=== PATIENT | female | born 1980 | race Caucasian/White ===

== ENCOUNTER 2021-07-04 10:17 | Inpatient (IN) | payer SELFPAY ==
[2021-07-04] MEDS ORDERED: Ondansetron PF 4 MG/2 ML Vial ONE ×3 (10:44→19:46)
[2021-07-04] MEDS ORDERED: Morphine 4 MG/ML VIAL ONE ×2 (10:44→16:11)
[2021-07-04 11:14] LABS: Hemoglobin 15.1 g/dL (12.0-16.0); Mean Corpuscular HGB CONC 32.5 g/dL (32.0-36.0); Mean Corpuscular Hemoglobin 28.9 pg (27.0-31.0); Mean Corpuscular Volume 88.9 fL (78.0-98.0); Mean Platelet Volume 5.7 fL (7.4-10.4); Platelet Count 728 thou/uL (130-400); RBC Distribution Width 12.3 % (11.5-14.5); White Blood Cell (WBC) Count 27.2 thou/uL (4.8-10.8)
[2021-07-04 11:17] LABS: BHCG - Serum Negative (NEGATIVE); Pregs Control Background? CLEAR/WHITE (CLR/WHITE); Pregs Control Bar Appear? YES (CONTROL BAR)
[2021-07-04 11:19] LABS: ALT (SGPT) 24 U/L (8-55); AST (SGOT) 17 U/L (5-34); Alkaline Phosphatase 135 U/L (40-110); Anion Gap 24 mmol/L (10-20); BUN (Urea Nitrogen) 9 mg/dL (7.0-18.7); Bilirubin, Total 0.8 mg/dL (0.2-1.2); Calc. Creatinine Clearance 0 mL/min (70-130); Calcium 9.9 mg/dL (7.8-10.44); Carbon Dioxide 20 mmol/L (22-29); Chloride 94 mmol/L (98-107); Globulin 5.1 g/dL (2.4-3.5); Glucose 126 mg/dL (70-105); Lipase 62 U/L (8-78); Potassium 3.1 mmol/L (3.5-5.1); Protein, Total 9.1 g/dL (6.0-8.3); Sodium 135 mmol/L (136-145)
[2021-07-04] MEDS ORDERED: Piperacillin/Tazobactam 4.5 GM VIAL ONE ×2 (11:39→14:01)
[2021-07-04 11:58] LABS: Band 13 % (5-11); Lymphocytes 1 % (21-51); MDiff Complete? YES; Monocytes 3 % (0-10); Neutrophil 82 % (42-75); Platelet Morphology Comment Appears Increased; RBC Morphology Normal
[2021-07-04 12:26] LABS: Bilirubin 1+ (Negative); Blood, Urine 2+ (Negative); Clarity Turbid (Clear); Glucose, Urine (Dipstick) Normal (Negative); Ketone, Urine Negative (Negative); Leukocyte 75 Leu/uL (Negative); Nitrite Negative (Negative); Protein, Urine (Dipstick) 50 mg/dL (Neg-Trace); Specific Gravity, Urine 1.031 (1.002-1.036); Squamous Epithelial 21-50 HPF (0-3); Urobilinogen Normal mg/dL (Less than 2); WBC/HPF 21-50 HPF (0-3)
[2021-07-04 12:27] LABS: Bacteria/HPF 1+ HPF (None Seen)
[2021-07-04 12:36] LABS: Acetaminophen Less than 6.0 mcg/mL (10.0-30.0); Alcohol Less than 10 mg/dL (Less than 10); Salicylate Less than 8.0 mg/dL (15.0-30.0)
[2021-07-04] MEDS ORDERED: Promethazine HCl 25 MG/ML VIAL ONE ×2 (12:47→20:06)
[2021-07-04 14:32] LABS: SARS-CoV-2 NAA Rapid Test Not Detected (NotDetected)
[2021-07-04] MEDS ORDERED: Iopamidol-370 76% 500 ML 1 ML ONE (14:38)
[2021-07-04] MEDS ORDERED: Midazolam HCl 2 mg/2 ml Vial ONE (16:02)
[2021-07-04] MEDS ORDERED: Fentanyl 100 MCG/2 ML VIAL ONE ×4 (16:02→20:05)
[2021-07-04] MEDS ORDERED: Dexamethasone 4 mg/ml Vial ONE (16:05)
[2021-07-04] MEDS ORDERED: Dexamethasone 20 MG/5 ML VIAL ONE ×2 (16:30→16:44)
[2021-07-04] MEDS ORDERED: Ropivacaine 0.5% HCl/PF (150 MG/30 ML VIAL) ONE (16:30)
[2021-07-04] MEDS ORDERED: Ketorolac Tromethamine 30 MG/ML VIAL ONE (16:44)
[2021-07-04] MEDS ORDERED: Rocuronium Bromide 10 MG/ML (10ML VIAL) ONE (16:44)
[2021-07-04] MEDS ORDERED: Succinylcholine 200 MG/10 ml SYRINGE FS ONE (16:44)
[2021-07-04] MEDS ORDERED: Lidocaine 1% PF 5 ML VIAL ONE (16:44)
[2021-07-04] MEDS ORDERED: PROPOFOL 200 MG/20 ML VIAL ONE (16:44)
[2021-07-04] MEDS ORDERED: Albumin 5% 250 ML ONE (17:22)
[2021-07-04] MEDS ORDERED: Piperacillin/Tazobactam 3.375 GM VIAL ONE (18:59)
[2021-07-04] MEDS ORDERED: diphenhydrAMINE 50 MG/ML VIAL IM PRN (19:27)
[2021-07-04] MEDS ORDERED: Naloxone HCl 0.4 mg/ml Vial IV PRN (19:27)
[2021-07-04] MEDS ORDERED: fentaNYL Citrate-0.9 % NaCl/PF 100 ML IV PRN (19:27)
[2021-07-04] MEDS ORDERED: Ondansetron HCl/PF 4 MG/2 ML Vial IVP PRN (19:27)
[2021-07-04] MEDS ORDERED: diphenhydrAMINE 25 MG CAP PO PRN (19:27)
[2021-07-04] MEDS ORDERED: Promethazine HCl 25 MG/ML VIAL IM PRN ×2 (19:27→20:28)
[2021-07-04] MEDS ORDERED: Promethazine HCl 25 MG/ML VIAL IVPB PRN (19:27)
[2021-07-04] MEDS ORDERED: Zolpidem Tartrate 5 MG TAB PO PRN (19:27)
[2021-07-04] MEDS ORDERED: Communication Order-Pharmacy FS SCH (19:30)
[2021-07-04] MEDS ORDERED: hydrALAZINE 20 MG/ML VIAL SLOW IVP PRN (20:28)
[2021-07-04] MEDS: Famotidine 20 MG TAB PO SCH (22:31)
[2021-07-04] MEDS: Famotidine/PF 20 mg/2ml Vial SLOW IVP SCH (22:31)
[2021-07-04] MEDS: D5 0.9% NS w/ 20 mEq KCl 1,000 ML IV SCH (23:49)
[2021-07-05] MEDS: Ketorolac Tromethamine 30 MG/ML VIAL IVP SCH ×5 (00:17→23:31)
[2021-07-05] MEDS: diphenhydrAMINE 50 MG/ML VIAL IVP PRN ×5 (00:19→20:26)
[2021-07-05] MEDS: Piperacillin/Tazobactam 3.375 GM in Sodium Chloride 0.9% 100 ML IVPB SCH ×3 (04:05→17:17)
[2021-07-05] MEDS: D5 0.9% NS w/ 20 mEq KCl 1,000 ML IV SCH ×2 (05:03→14:23)
[2021-07-05 08:09] LABS: Band 66 % (5-11); Hemoglobin 12.6 g/dL (12.0-16.0); Lymphocytes 1 % (21-51); MDiff Complete? YES; Mean Corpuscular HGB CONC 32.2 g/dL (32.0-36.0); Mean Corpuscular Hemoglobin 29.4 pg (27.0-31.0); Mean Corpuscular Volume 91.3 fL (78.0-98.0); Mean Platelet Volume 6.1 fL (7.4-10.4); Monocytes 3 % (0-10); Neutrophil 30 % (42-75); Platelet Count 542 thou/uL (130-400); Platelet Morphology Comment Appears Increased; Polychromasia SLIGHT = 2-3 cells (100X) (0-2/hpf); RBC Distribution Width 12.2 % (11.5-14.5); Red Blood Cell (RBC) Count 4.27 mill/uL (4.20-5.40); White Blood Cell (WBC) Count 28.2 thou/uL (4.8-10.8)
[2021-07-05] MEDS: Famotidine/PF 20 mg/2ml Vial SLOW IVP SCH ×2 (08:33→20:25)
[2021-07-05] MEDS ORDERED: FLU VACC QS2021-22(6MOS UP)/PF 60 MCG/0.5 ML SYRINGE IM ONE (09:00)
[2021-07-05 09:51] LABS: Anion Gap 12 mmol/L (10-20); BUN (Urea Nitrogen) 9 mg/dL (7.0-18.7); Calc. Creatinine Clearance 116 mL/min (70-130); Calcium 8.4 mg/dL (7.8-10.44); Carbon Dioxide 28 mmol/L (22-29); Chloride 101 mmol/L (98-107); Glucose 140 mg/dL (70-105); Potassium 3.2 mmol/L (3.5-5.1); Sodium 138 mmol/L (136-145)
[2021-07-05] MEDS: Enoxaparin Sodium 40 MG/0.4 ML SYRINGE SC SCH ×2 (11:28→11:29)
[2021-07-05] MEDS: Ondansetron PF 4 MG/2 ML Vial IVP PRN ×2 (11:41→20:25)
[2021-07-05] MEDS: Famotidine 20 MG TAB PO SCH (11:59)
[2021-07-05] MEDS: Lidocaine 5% Patch TD SCH (16:30)
[2021-07-05] MEDS ORDERED: Electrolyte Replacement Protocol 1 EACH FS SCH (16:45)
[2021-07-05] MEDS ORDERED: Potassium Chloride 40 MEQ in Sodium Chloride 0.9% 250 ML 250 ML IVPB SCH (17:15)
[2021-07-05] MEDS ORDERED: fentaNYL Citrate/PF PCA SYRING 50 ML IV SCH (17:30)
[2021-07-05] MEDS ORDERED: Fentanyl CADD 100 ML IVPB SCH (17:30)
[2021-07-05] MEDS: Potassium Chloride 20 MEQ in Premix Bag 1 BAG IVPB SCH ×3 (20:04→20:43)
[2021-07-05] MEDS ORDERED: Potassium Chloride 20 MEQ TAB PO SCH (20:30)
[2021-07-05] MEDS ORDERED: Transdermal Patch Removal TOP SCH (23:59)
[2021-07-06] MEDS: Piperacillin/Tazobactam 3.375 GM in Sodium Chloride 0.9% 100 ML IVPB SCH ×3 (03:39→20:31)
[2021-07-06] MEDS: D5 0.9% NS w/ 20 mEq KCl 1,000 ML IV SCH ×4 (03:44→22:30)
[2021-07-06] MEDS: Transdermal Patch Removal TOP SCH (03:46)
[2021-07-06] MEDS: diphenhydrAMINE 50 MG/ML VIAL IVP PRN (03:54)
[2021-07-06] MEDS: Ondansetron PF 4 MG/2 ML Vial IVP PRN ×2 (03:56→18:00)
[2021-07-06] MEDS: Ketorolac Tromethamine 30 MG/ML VIAL IVP SCH ×3 (05:51→17:47)
[2021-07-06 07:53] LABS: ALT (SGPT) 14 U/L (8-55); AST (SGOT) 12 U/L (5-34); Alkaline Phosphatase 68 U/L (40-110); Anion Gap 14 mmol/L (10-20); BUN (Urea Nitrogen) 11 mg/dL (7.0-18.7); Bilirubin, Total 0.4 mg/dL (0.2-1.2); Calc. Creatinine Clearance 122 mL/min (70-130); Carbon Dioxide 25 mmol/L (22-29); Chloride 103 mmol/L (98-107); Globulin 3.3 g/dL (2.4-3.5); Glucose 113 mg/dL (70-105); Magnesium 1.9 mg/dL (1.6-2.6); Phosphorus 1.7 mg/dL (2.3-4.7); Potassium 3.3 mmol/L (3.5-5.1); Protein, Total 6.3 g/dL (6.0-8.3); Sodium 139 mmol/L (136-145)
[2021-07-06 10:21] LABS: Band 25 % (5-11); Hemoglobin 10.4 g/dL (12.0-16.0); Lymphocytes 5 % (21-51); MDiff Complete? YES; Mean Corpuscular HGB CONC 32.5 g/dL (32.0-36.0); Mean Corpuscular Hemoglobin 29.6 pg (27.0-31.0); Mean Corpuscular Volume 91.3 fL (78.0-98.0); Monocytes 2 % (0-10); Neutrophil 68 % (42-75); Platelet Count 430 thou/uL (130-400); Platelet Morphology Comment Appears Increased; RBC Distribution Width 12.2 % (11.5-14.5); RBC Morphology Normal; Red Blood Cell (RBC) Count 3.52 mill/uL (4.20-5.40); White Blood Cell (WBC) Count 22.3 thou/uL (4.8-10.8)
[2021-07-06] MEDS ORDERED: Magnesium 2 GM/50 ML 2 GM in Premix Bag 1 BAG IVPB SCH ×2 (10:45→14:30)
[2021-07-06] MEDS ORDERED: Potassium Phosphate 15 MMOL in Sodium Chloride 0.9% 100 ML IVPB SCH (10:45)
[2021-07-06] MEDS: Famotidine/PF 20 mg/2ml Vial SLOW IVP SCH ×2 (11:34→21:12)
[2021-07-06] MEDS: Lidocaine 5% Patch TD SCH (16:06)
[2021-07-06] MEDS: Morphine 4 MG/ML VIAL SLOW IVP PRN ×2 (16:18→22:23)
[2021-07-06] MEDS: Potassium Chloride 10 MEQ in Premix Bag 1 BAG IVPB SCH (20:12)
[2021-07-06] MEDS: HYDROcodone/Acetaminophen 10/325 mg Tablet PO PRN (22:25)
[2021-07-06] MEDS: Promethazine HCl 25 MG/ML VIAL IM PRN (22:36)
[2021-07-07] MEDS: Ketorolac Tromethamine 30 MG/ML VIAL IVP SCH ×4 (00:11→18:31)
[2021-07-07] MEDS: HYDROcodone/Acetaminophen 10/325 mg Tablet PO PRN ×3 (02:35→11:48)
[2021-07-07] MEDS: Piperacillin/Tazobactam 3.375 GM in Sodium Chloride 0.9% 100 ML IVPB SCH ×3 (04:53→22:31)
[2021-07-07] MEDS: Transdermal Patch Removal TOP SCH (05:00)
[2021-07-07 06:43] LABS: #Eosinphils 0.2 thou/uL (0.0-0.7); #Lymphocytes 0.9 thou/uL (1.20-3.40); #Monocytes 0.9 thou/uL (0.11-0.59); #Neutrophils 16.2 thou/uL (1.40-6.50); %Basophils 0.1 % (0.0-1.0); %Eosinophils 1.4 % (0.0-10.0); %Lymphocytes 4.7 % (21.0-51.0); %Monocytes 5.1 % (0.0-10.0); %Neutrophils 88.8 % (42.0-75.0); Hemoglobin 10.8 g/dL (12.0-16.0); Mean Corpuscular HGB CONC 31.7 g/dL (32.0-36.0); Mean Corpuscular Hemoglobin 29.6 pg (27.0-31.0); Mean Corpuscular Volume 93.3 fL (78.0-98.0); Mean Platelet Volume 6.4 fL (7.4-10.4); Platelet Count 425 thou/uL (130-400); RBC Distribution Width 12.2 % (11.5-14.5); Red Blood Cell (RBC) Count 3.66 mill/uL (4.20-5.40); White Blood Cell (WBC) Count 18.2 thou/uL (4.8-10.8)
[2021-07-07 07:04] LABS: Anion Gap 16 mmol/L (10-20); BUN (Urea Nitrogen) 7 mg/dL (7.0-18.7); Calc. Creatinine Clearance 129 mL/min (70-130); Calcium 8.3 mg/dL (7.8-10.44); Carbon Dioxide 20 mmol/L (22-29); Chloride 100 mmol/L (98-107); Glucose 95 mg/dL (70-105); Potassium 3.1 mmol/L (3.5-5.1); Sodium 133 mmol/L (136-145)
[2021-07-07] MEDS: Ondansetron PF 4 MG/2 ML Vial IVP PRN (07:20)
[2021-07-07] MEDS ORDERED: Potassium Chloride 20 MEQ in Premix Bag 1 BAG IVPB SCH (08:00)
[2021-07-07] MEDS: D5 0.9% NS w/ 20 mEq KCl 1,000 ML IV SCH ×2 (08:02→16:34)
[2021-07-07] MEDS: Famotidine/PF 20 mg/2ml Vial SLOW IVP SCH ×2 (09:45→22:31)
[2021-07-07] MEDS: Morphine 4 MG/ML VIAL SLOW IVP PRN ×2 (09:46→14:53)
[2021-07-07] MEDS: PHOS-NAK 1 PKT PACK PO SCH (09:46)
[2021-07-07] MEDS: Polyethylene Glycol 3350 17 GM Packet PO SCH (09:47)
[2021-07-07] MEDS: Potassium Chloride 20 MEQ TAB PO SCH ×2 (10:01→14:55)
[2021-07-07] MEDS: Promethazine HCl 25 MG/ML VIAL IM PRN (10:02)
[2021-07-07] MEDS: Enoxaparin Sodium 40 MG/0.4 ML SYRINGE SC SCH (10:02)
[2021-07-07] MEDS: Lidocaine 5% Patch TD SCH (14:53)
[2021-07-07] MEDS: D5 NS w/ 40 mEq KCl 1,000 ML IV SCH (16:09)
[2021-07-08] MEDS: HYDROcodone/Acetaminophen 10/325 mg Tablet PO PRN ×3 (01:19→23:07)
[2021-07-08] MEDS ORDERED: Metoprolol Tartrate 5 MG/5 ML VIAL IVP SCH (01:30)
[2021-07-08] MEDS ORDERED: Vancomycin HCl 1.75 GM in Sodium Chloride 0.9% 500 ML IVPB SCH (02:00)
[2021-07-08] MEDS: Ondansetron PF 4 MG/2 ML Vial IVP PRN ×3 (03:06→17:53)
[2021-07-08] MEDS ORDERED: Ketorolac Tromethamine 30 MG/ML VIAL IVP SCH (03:15)
[2021-07-08] MEDS: D5 NS w/ 40 mEq KCl 1,000 ML IV SCH (03:22)
[2021-07-08] MEDS: Ketorolac Tromethamine 30 MG/ML VIAL IVP SCH (03:22)
[2021-07-08] MEDS: Piperacillin/Tazobactam 3.375 GM in Sodium Chloride 0.9% 100 ML IVPB SCH ×4 (04:06→23:09)
[2021-07-08] MEDS: Transdermal Patch Removal TOP SCH (04:07)
[2021-07-08 05:15] LABS: Anion Gap 15 mmol/L (10-20); BUN (Urea Nitrogen) 7 mg/dL (7.0-18.7); Calc. Creatinine Clearance 135 mL/min (70-130); Calcium 7.8 mg/dL (7.8-10.44); Carbon Dioxide 21 mmol/L (22-29); Chloride 101 mmol/L (98-107); Glucose 89 mg/dL (70-105); Magnesium 1.8 mg/dL (1.6-2.6); Potassium 3.6 mmol/L (3.5-5.1); Sodium 133 mmol/L (136-145)
[2021-07-08 05:32] LABS: Band 29 % (5-11); Hemoglobin 10.1 g/dL (12.0-16.0); Lymphocytes 3 % (21-51); MDiff Complete? YES; Mean Corpuscular HGB CONC 32.1 g/dL (32.0-36.0); Mean Corpuscular Hemoglobin 29.5 pg (27.0-31.0); Mean Corpuscular Volume 91.9 fL (78.0-98.0); Mean Platelet Volume 6.1 fL (7.4-10.4); Monocytes 1 % (0-10); Neutrophil 67 % (42-75); Platelet Count 427 thou/uL (130-400); RBC Distribution Width 12.2 % (11.5-14.5); Red Blood Cell (RBC) Count 3.42 mill/uL (4.20-5.40); White Blood Cell (WBC) Count 22.4 thou/uL (4.8-10.8)
[2021-07-08] MEDS: Famotidine/PF 20 mg/2ml Vial SLOW IVP SCH ×2 (08:19→20:27)
[2021-07-08] MEDS: PHOS-NAK 1 PKT PACK PO SCH (08:19)
[2021-07-08] MEDS: Polyethylene Glycol 3350 17 GM Packet PO SCH (08:20)
[2021-07-08] MEDS: Enoxaparin Sodium 40 MG/0.4 ML SYRINGE SC SCH (10:06)
[2021-07-08] MEDS ORDERED: Iopamidol 370 76% 50 ML VIAL FS ONE (12:04)
[2021-07-08] MEDS ORDERED: Iopamidol 370 76% 100 ML VIAL ONE (12:04)
[2021-07-08] MEDS: Lidocaine 5% Patch TD SCH (12:54)
[2021-07-08] MEDS: Morphine 4 MG/ML VIAL SLOW IVP PRN ×3 (12:54→20:27)
[2021-07-08] MEDS ORDERED: Sodium Chloride 0.9% 1,000 ML IV SCH (13:00)
[2021-07-08] MEDS: Vancomycin HCl 1.25 GM in Sodium Chloride 0.9% 250 ML 250 ML IVPB SCH (14:36)
[2021-07-08] MEDS: D5 0.9% NS w/ 20 mEq KCl 1,000 ML IV SCH ×2 (14:36→17:59)
[2021-07-09] MEDS: Ondansetron PF 4 MG/2 ML Vial IVP PRN ×3 (00:26→19:40)
[2021-07-09] MEDS: Morphine 4 MG/ML VIAL SLOW IVP PRN ×5 (00:26→23:42)
[2021-07-09] MEDS: Vancomycin HCl 1.25 GM in Sodium Chloride 0.9% 250 ML 250 ML IVPB SCH ×3 (04:03→21:29)
[2021-07-09] MEDS: D5 0.9% NS w/ 20 mEq KCl 1,000 ML IV SCH (04:03)
[2021-07-09] MEDS: Transdermal Patch Removal TOP SCH (04:05)
[2021-07-09 05:46] LABS: Hemoglobin 10.5 g/dL (12.0-16.0); Mean Corpuscular HGB CONC 31.3 g/dL (32.0-36.0); Mean Corpuscular Hemoglobin 29.1 pg (27.0-31.0); Mean Corpuscular Volume 92.9 fL (78.0-98.0); Mean Platelet Volume 6.4 fL (7.4-10.4); Platelet Count 433 thou/uL (130-400); RBC Distribution Width 12.4 % (11.5-14.5); Red Blood Cell (RBC) Count 3.61 mill/uL (4.20-5.40); White Blood Cell (WBC) Count 27.5 thou/uL (4.8-10.8)
[2021-07-09] MEDS: Piperacillin/Tazobactam 3.375 GM in Sodium Chloride 0.9% 100 ML IVPB SCH ×3 (05:55→21:26)
[2021-07-09 06:02] LABS: Band 22 % (5-11); Lymphocytes 2 % (21-51); MDiff Complete? YES; Monocytes 1 % (0-10); Neutrophil 75 % (42-75)
[2021-07-09 07:15] LABS: ALT (SGPT) 12 U/L (8-55); AST (SGOT) 14 U/L (5-34); Albumin 2.9 g/dL (3.5-5.0); Alkaline Phosphatase 127 U/L (40-110); Anion Gap 17 mmol/L (10-20); BUN (Urea Nitrogen) 9 mg/dL (7.0-18.7); Bilirubin, Total 0.5 mg/dL (0.2-1.2); Calc. Creatinine Clearance 72 mL/min (70-130); Calcium 8.2 mg/dL (7.8-10.44); Carbon Dioxide 16 mmol/L (22-29); Chloride 106 mmol/L (98-107); Globulin 3.7 g/dL (2.4-3.5); Glucose 80 mg/dL (70-105); Potassium 3.2 mmol/L (3.5-5.1); Protein, Total 6.6 g/dL (6.0-8.3); Sodium 136 mmol/L (136-145)
[2021-07-09 09:49] LABS: Phosphorus 3.1 mg/dL (2.3-4.7)
[2021-07-09] MEDS: Famotidine/PF 20 mg/2ml Vial SLOW IVP SCH ×2 (10:03→21:25)
[2021-07-09] MEDS: Potassium Chloride 40 MEQ in Dextrose 5%-Lactated Ringers 1,000 ML IV SCH ×2 (10:04→20:37)
[2021-07-09] MEDS: Polyethylene Glycol 3350 17 GM Packet PO SCH (10:05)
[2021-07-09] MEDS: Enoxaparin Sodium 40 MG/0.4 ML SYRINGE SC SCH (11:32)
[2021-07-09] MEDS: PHOS-NAK 1 PKT PACK PO SCH (11:32)
[2021-07-09] MEDS: Lidocaine 5% Patch TD SCH (11:38)
[2021-07-09 20:14] LABS: Vancomycin, Trough 14.7 ug/mL
[2021-07-09 20:21] LABS: Anion Gap 15 mmol/L (10-20); BUN (Urea Nitrogen) 9 mg/dL (7.0-18.7); Calc. Creatinine Clearance 85 mL/min (70-130); Carbon Dioxide 19 mmol/L (22-29); Chloride 103 mmol/L (98-107); Glucose 81 mg/dL (70-105); Potassium 3.2 mmol/L (3.5-5.1); Sodium 134 mmol/L (136-145)
[2021-07-09] MEDS: HYDROcodone/Acetaminophen 10/325 mg Tablet PO PRN (21:37)
[2021-07-10] MEDS: Potassium Chloride 40 MEQ in Dextrose 5%-Lactated Ringers 1,000 ML IV SCH ×4 (00:47→22:38)
[2021-07-10] MEDS: Transdermal Patch Removal TOP SCH (00:48)
[2021-07-10] MEDS: HYDROcodone/Acetaminophen 10/325 mg Tablet PO PRN (02:00)
[2021-07-10] MEDS: Morphine 4 MG/ML VIAL SLOW IVP PRN ×4 (04:23→21:26)
[2021-07-10 05:45] LABS: Mean Corpuscular HGB CONC 31.2 g/dL (32.0-36.0); Mean Corpuscular Hemoglobin 28.6 pg (27.0-31.0); Mean Corpuscular Volume 91.6 fL (78.0-98.0); Mean Platelet Volume 6.4 fL (7.4-10.4); Platelet Count 388 thou/uL (130-400); RBC Distribution Width 12.4 % (11.5-14.5); Red Blood Cell (RBC) Count 2.81 mill/uL (4.20-5.40); White Blood Cell (WBC) Count 21.5 thou/uL (4.8-10.8)
[2021-07-10 06:05] LABS: Anion Gap 9 mmol/L (10-20); BUN (Urea Nitrogen) 8 mg/dL (7.0-18.7); Calc. Creatinine Clearance 87 mL/min (70-130); Calcium 7.8 mg/dL (7.8-10.44); Carbon Dioxide 26 mmol/L (22-29); Chloride 103 mmol/L (98-107); Glucose 104 mg/dL (70-105); Magnesium 1.8 mg/dL (1.6-2.6); Phosphorus 2.8 mg/dL (2.3-4.7); Potassium 3.5 mmol/L (3.5-5.1); Sodium 134 mmol/L (136-145)
[2021-07-10 06:42] LABS: Band 21 % (5-11); Hypochromia SLIGHT = 6-15 cells (100X) (0-5/hpf); Lymphocytes 4 % (21-51); MDiff Complete? YES; Monocytes 2 % (0-10); Neutrophil 73 % (42-75); Platelet Morphology Comment Appears Adequate; Polychromasia SLIGHT = 2-3 cells (100X) (0-2/hpf)
[2021-07-10] MEDS: Vancomycin HCl 1.25 GM in Sodium Chloride 0.9% 250 ML 250 ML IVPB SCH ×3 (07:42→22:50)
[2021-07-10] MEDS: Famotidine/PF 20 mg/2ml Vial SLOW IVP SCH ×2 (09:16→21:28)
[2021-07-10] MEDS: Piperacillin/Tazobactam 3.375 GM in Sodium Chloride 0.9% 100 ML IVPB SCH ×3 (09:18→21:28)
[2021-07-10] MEDS ORDERED: Magnesium Sulfate 2 GM in Sodium Chloride 0.9% 100 ML IVPB SCH (09:45)
[2021-07-10] MEDS ORDERED: Potassium Chloride 40 MEQ in Dextrose 5%-Lactated Ringers 1,000 ML IV SCH (09:51)
[2021-07-10] MEDS ORDERED: Magnesium 2 GM/50 ML 2 GM in Premix Bag 1 BAG IVPB SCH (10:00)
[2021-07-10] MEDS: Enoxaparin Sodium 40 MG/0.4 ML SYRINGE SC SCH (10:48)
[2021-07-10] MEDS ORDERED: Electrolyte Replacement Protocol FS PRN ×2 (12:15→13:30)
[2021-07-10] MEDS: Lidocaine 5% Patch TD SCH (13:10)
[2021-07-10] MEDS: Ondansetron PF 4 MG/2 ML Vial IVP PRN (13:10)
[2021-07-10] MEDS ORDERED: Potassium Chloride 40 MEQ in Sodium Chloride 0.9% 250 ML 250 ML IVPB SCH (14:00)
[2021-07-10] MEDS: Multivitamins, Adult 10 ML, TRACE ELEMENT CONCENTRATE 1 ML in CLINIMIX E 5/20 2,000 ML IV SCH (14:48)
[2021-07-10 23:15] LABS: Vancomycin, Trough 16.2 ug/mL
[2021-07-11] MEDS: Morphine 4 MG/ML VIAL SLOW IVP PRN ×4 (04:35→20:42)
[2021-07-11] MEDS: Transdermal Patch Removal TOP SCH (04:50)
[2021-07-11 05:38] LABS: #Eosinphils 0.3 thou/uL (0.0-0.7); #Lymphocytes 0.8 thou/uL (1.20-3.40); #Neutrophils 14.6 thou/uL (1.40-6.50); %Basophils 0.1 % (0.0-1.0); %Eosinophils 1.9 % (0.0-10.0); %Monocytes 6.1 % (0.0-10.0); %Neutrophils 86.8 % (42.0-75.0); Hemoglobin 7.7 g/dL (12.0-16.0); Mean Corpuscular Hemoglobin 28.4 pg (27.0-31.0); Mean Corpuscular Volume 91.7 fL (78.0-98.0); Mean Platelet Volume 6.3 fL (7.4-10.4); Platelet Count 408 thou/uL (130-400); RBC Distribution Width 12.5 % (11.5-14.5); Red Blood Cell (RBC) Count 2.71 mill/uL (4.20-5.40); White Blood Cell (WBC) Count 16.8 thou/uL (4.8-10.8)
[2021-07-11 06:02] LABS: Anion Gap 12 mmol/L (10-20); BUN (Urea Nitrogen) 6 mg/dL (7.0-18.7); Calc. Creatinine Clearance 96 mL/min (70-130); Calcium 7.7 mg/dL (7.8-10.44); Carbon Dioxide 24 mmol/L (22-29); Chloride 103 mmol/L (98-107); Glucose 88 mg/dL (70-105); Potassium 3.5 mmol/L (3.5-5.1); Sodium 135 mmol/L (136-145)
[2021-07-11] MEDS: Potassium Chloride 40 MEQ in Dextrose 5%-Lactated Ringers 1,000 ML IV SCH ×2 (06:07→09:33)
[2021-07-11] MEDS: Piperacillin/Tazobactam 3.375 GM in Sodium Chloride 0.9% 100 ML IVPB SCH ×3 (06:08→22:53)
[2021-07-11] MEDS ORDERED: Potassium Chloride 40 MEQ in Premix Bag 1 BAG IVPB SCH (06:30)
[2021-07-11] MEDS ORDERED: Furosemide 20 MG/2 ML VIAL SLOW IVP SCH (08:45)
[2021-07-11] MEDS: Famotidine/PF 20 mg/2ml Vial SLOW IVP SCH ×2 (09:25→20:42)
[2021-07-11] MEDS: Enoxaparin Sodium 40 MG/0.4 ML SYRINGE SC SCH (11:50)
[2021-07-11] MEDS: Vancomycin HCl 1.25 GM in Sodium Chloride 0.9% 250 ML 250 ML IVPB SCH ×2 (13:15→20:42)
[2021-07-11] MEDS ORDERED: Fat Emulsion 250 ML IVPB SCH (14:00)
[2021-07-11] MEDS: Multivitamins, Adult 10 ML, TRACE ELEMENT CONCENTRATE 1 ML in CLINIMIX E 5/20 2,000 ML IV SCH (16:11)
[2021-07-11] MEDS: Ondansetron PF 4 MG/2 ML Vial IVP PRN (16:12)
[2021-07-11] MEDS: Lidocaine 5% Patch TD SCH (19:42)
[2021-07-12] MEDS: Morphine 4 MG/ML VIAL SLOW IVP PRN ×4 (01:55→21:35)
[2021-07-12] MEDS: Transdermal Patch Removal TOP SCH (05:39)
[2021-07-12] MEDS: Piperacillin/Tazobactam 3.375 GM in Sodium Chloride 0.9% 100 ML IVPB SCH ×3 (05:44→21:05)
[2021-07-12 06:22] LABS: #Eosinphils 0.4 thou/uL (0.0-0.7); #Monocytes 1.1 thou/uL (0.11-0.59); %Basophils 0.1 % (0.0-1.0); %Eosinophils 2.3 % (0.0-10.0); %Lymphocytes 6.1 % (21.0-51.0); %Monocytes 7.1 % (0.0-10.0); %Neutrophils 84.4 % (42.0-75.0); Hemoglobin 8.3 g/dL (12.0-16.0); Mean Corpuscular HGB CONC 31.3 g/dL (32.0-36.0); Mean Corpuscular Hemoglobin 28.5 pg (27.0-31.0); Mean Corpuscular Volume 91.2 fL (78.0-98.0); Mean Platelet Volume 6.2 fL (7.4-10.4); Platelet Count 529 thou/uL (130-400); RBC Distribution Width 12.5 % (11.5-14.5); White Blood Cell (WBC) Count 15.5 thou/uL (4.8-10.8)
[2021-07-12 06:36] LABS: Anion Gap 15 mmol/L (10-20); BUN (Urea Nitrogen) 8 mg/dL (7.0-18.7); Calc. Creatinine Clearance 93 mL/min (70-130); Calcium 8.1 mg/dL (7.8-10.44); Carbon Dioxide 25 mmol/L (22-29); Chloride 101 mmol/L (98-107); Glucose 99 mg/dL (70-105); Magnesium 1.8 mg/dL (1.6-2.6); Potassium 3.7 mmol/L (3.5-5.1); Sodium 137 mmol/L (136-145)
[2021-07-12] MEDS ORDERED: Magnesium 2 GM/50 ML 2 GM in Premix Bag 1 BAG IVPB SCH (08:00)
[2021-07-12] MEDS: Famotidine/PF 20 mg/2ml Vial SLOW IVP SCH (08:31)
[2021-07-12] MEDS: Enoxaparin Sodium 40 MG/0.4 ML SYRINGE SC SCH (08:31)
[2021-07-12] MEDS: Vancomycin HCl 1.25 GM in Sodium Chloride 0.9% 250 ML 250 ML IVPB SCH (09:39)
[2021-07-12 10:06] LABS: Vancomycin, Trough 24.7 ug/mL
[2021-07-12] MEDS: Potassium Chloride 40 MEQ in Dextrose 5%-Lactated Ringers 1,000 ML IV SCH (10:27)
[2021-07-12] MEDS ORDERED: Acetaminophen 325 MG TAB PO PRN (10:34)
[2021-07-12] MEDS: Acetaminophen 500 MG TAB PO SCH ×2 (12:26→18:43)
[2021-07-12] MEDS: traMADol HCl 50 MG TAB PO PRN ×2 (12:26→19:16)
[2021-07-12] MEDS: Lidocaine 5% Patch TD SCH (15:30)
[2021-07-12] MEDS: Gabapentin 300 MG CAP PO SCH ×2 (15:30→21:05)
[2021-07-12] MEDS: Famotidine 20 MG TAB PO SCH (21:06)
[2021-07-12] MEDS: Ondansetron PF 4 MG/2 ML Vial IVP PRN (21:51)
[2021-07-13] MEDS: Acetaminophen 500 MG TAB PO SCH ×5 (00:30→23:38)
[2021-07-13] MEDS: traMADol HCl 50 MG TAB PO PRN ×4 (00:49→22:21)
[2021-07-13] MEDS: Ondansetron PF 4 MG/2 ML Vial IVP PRN ×2 (03:31→22:21)
[2021-07-13] MEDS: Transdermal Patch Removal TOP SCH (03:35)
[2021-07-13] MEDS: Morphine 4 MG/ML VIAL SLOW IVP PRN (03:37)
[2021-07-13] MEDS: Piperacillin/Tazobactam 3.375 GM in Sodium Chloride 0.9% 100 ML IVPB SCH ×3 (07:35→22:14)
[2021-07-13 08:24] LABS: #Eosinphils 0.4 thou/uL (0.0-0.7); #Lymphocytes 0.8 thou/uL (1.20-3.40); #Monocytes 1.1 thou/uL (0.11-0.59); #Neutrophils 13.9 thou/uL (1.40-6.50); %Basophils 0.1 % (0.0-1.0); %Eosinophils 2.4 % (0.0-10.0); %Lymphocytes 4.7 % (21.0-51.0); %Monocytes 6.6 % (0.0-10.0); %Neutrophils 86.2 % (42.0-75.0); Hemoglobin 9.3 g/dL (12.0-16.0); Mean Corpuscular HGB CONC 31.6 g/dL (32.0-36.0); Mean Corpuscular Hemoglobin 28.8 pg (27.0-31.0); Mean Corpuscular Volume 91.4 fL (78.0-98.0); Mean Platelet Volume 6.2 fL (7.4-10.4); Platelet Count 547 thou/uL (130-400); RBC Distribution Width 12.6 % (11.5-14.5); Red Blood Cell (RBC) Count 3.21 mill/uL (4.20-5.40); White Blood Cell (WBC) Count 16.1 thou/uL (4.8-10.8)
[2021-07-13 08:47] LABS: Anion Gap 14 mmol/L (10-20); BUN (Urea Nitrogen) 6 mg/dL (7.0-18.7); Calc. Creatinine Clearance 90 mL/min (70-130); Carbon Dioxide 25 mmol/L (22-29); Chloride 103 mmol/L (98-107); Glucose 80 mg/dL (70-105); Potassium 3.6 mmol/L (3.5-5.1); Sodium 138 mmol/L (136-145)
[2021-07-13] MEDS ORDERED: Vancomycin HCl 1.5 GM in Sodium Chloride 0.9% 250 ML 300 ML IVPB SCH (09:00)
[2021-07-13] MEDS: Gabapentin 300 MG CAP PO SCH ×3 (09:40→20:41)
[2021-07-13] MEDS: Enoxaparin Sodium 40 MG/0.4 ML SYRINGE SC SCH (09:40)
[2021-07-13] MEDS: Famotidine 20 MG TAB PO SCH (09:40)
[2021-07-13] MEDS: Lidocaine 5% Patch TD SCH (11:52)
[2021-07-13] MEDS ORDERED: Ibuprofen 600 MG TAB PO PRN (13:29)
[2021-07-13] MEDS ORDERED: Activase 2 MG VIAL CATH SCH (17:00)
[2021-07-13] MEDS ORDERED: Sterile Water 10 ML VIAL IVP SCH (17:30)
[2021-07-14] MEDS: traMADol HCl 50 MG TAB PO PRN ×3 (01:52→20:31)
[2021-07-14] MEDS: Transdermal Patch Removal TOP SCH (04:51)
[2021-07-14] MEDS: Acetaminophen 500 MG TAB PO SCH (05:51)
[2021-07-14] MEDS: Piperacillin/Tazobactam 3.375 GM in Sodium Chloride 0.9% 100 ML IVPB SCH (06:10)
[2021-07-14] MEDS: Morphine 4 MG/ML VIAL SLOW IVP PRN (08:28)
[2021-07-14] MEDS: Gabapentin 300 MG CAP PO SCH ×3 (08:28→20:31)
[2021-07-14] MEDS: Enoxaparin Sodium 40 MG/0.4 ML SYRINGE SC SCH (08:28)
[2021-07-14] MEDS ORDERED: Ciprofloxacin 500 MG TAB PO SCH (09:00)
[2021-07-14 09:22] LABS: #Eosinphils 0.4 thou/uL (0.0-0.7); #Lymphocytes 0.8 thou/uL (1.20-3.40); #Monocytes 1.1 thou/uL (0.11-0.59); #Neutrophils 14.4 thou/uL (1.40-6.50); %Basophils 0.1 % (0.0-1.0); %Eosinophils 2.7 % (0.0-10.0); %Lymphocytes 4.9 % (21.0-51.0); %Monocytes 6.7 % (0.0-10.0); %Neutrophils 85.6 % (42.0-75.0); Hemoglobin 7.8 g/dL (12.0-16.0); Mean Corpuscular HGB CONC 32.9 g/dL (32.0-36.0); Mean Corpuscular Hemoglobin 30.1 pg (27.0-31.0); Mean Corpuscular Volume 91.4 fL (78.0-98.0); Platelet Count 696 thou/uL (130-400); RBC Distribution Width 12.6 % (11.5-14.5); White Blood Cell (WBC) Count 16.8 thou/uL (4.8-10.8)
[2021-07-14 09:34] LABS: Anion Gap 11 mmol/L (10-20); BUN (Urea Nitrogen) 8 mg/dL (7.0-18.7); Calc. Creatinine Clearance 71 mL/min (70-130); Calcium 7.9 mg/dL (7.8-10.44); Carbon Dioxide 27 mmol/L (22-29); Chloride 103 mmol/L (98-107); Glucose 92 mg/dL (70-105); Potassium 3.6 mmol/L (3.5-5.1); Sodium 137 mmol/L (136-145)
[2021-07-14] MEDS ORDERED: Iopamidol 370 76% 50 ML VIAL FS ONE (10:20)
[2021-07-14] MEDS: Lidocaine 5% Patch TD SCH (11:24)
[2021-07-14] MEDS: HYDROcodone/Acetaminophen 7.5/325 mg Tablet PO PRN ×4 (11:57→23:33)
[2021-07-14] MEDS: Ondansetron ODT 4 MG TAB PO PRN ×2 (12:08→20:31)
[2021-07-14] MEDS: Sodium Chloride 0.9% 1,000 ML IV SCH (14:28)
[2021-07-14] MEDS: Ciprofloxacin 500 MG TAB PO SCH (20:31)
[2021-07-15] MEDS: traMADol HCl 50 MG TAB PO PRN ×2 (01:37→20:44)
[2021-07-15] MEDS: Sodium Chloride 0.9% 1,000 ML IV SCH (01:40)
[2021-07-15] MEDS: Transdermal Patch Removal TOP SCH ×2 (01:51→21:21)
[2021-07-15] MEDS: HYDROcodone/Acetaminophen 7.5/325 mg Tablet PO PRN ×3 (05:16→17:17)
[2021-07-15] MEDS: Ciprofloxacin 500 MG TAB PO SCH ×2 (05:18→20:31)
[2021-07-15] MEDS: Ondansetron ODT 4 MG TAB PO PRN ×2 (05:18→20:43)
[2021-07-15 05:42] LABS: #Eosinphils 0.4 thou/uL (0.0-0.7); #Monocytes 1.2 thou/uL (0.11-0.59); #Neutrophils 13.3 thou/uL (1.40-6.50); %Basophils 0.2 % (0.0-1.0); %Eosinophils 2.5 % (0.0-10.0); %Lymphocytes 6.4 % (21.0-51.0); %Monocytes 7.7 % (0.0-10.0); %Neutrophils 83.3 % (42.0-75.0); Hemoglobin 8.1 g/dL (12.0-16.0); Mean Corpuscular HGB CONC 32.4 g/dL (32.0-36.0); Mean Corpuscular Hemoglobin 29.6 pg (27.0-31.0); Mean Corpuscular Volume 91.2 fL (78.0-98.0); Mean Platelet Volume 6.1 fL (7.4-10.4); Platelet Count 803 thou/uL (130-400); RBC Distribution Width 12.6 % (11.5-14.5); Red Blood Cell (RBC) Count 2.75 mill/uL (4.20-5.40)
[2021-07-15 06:04] LABS: ALT (SGPT) 18 U/L (8-55); AST (SGOT) 22 U/L (5-34); Albumin 2.5 g/dL (3.5-5.0); Alkaline Phosphatase 99 U/L (40-110); Anion Gap 14 mmol/L (10-20); BUN (Urea Nitrogen) 7 mg/dL (7.0-18.7); Bilirubin, Total 0.2 mg/dL (0.2-1.2); Calc. Creatinine Clearance 70 mL/min (70-130); Carbon Dioxide 26 mmol/L (22-29); Chloride 104 mmol/L (98-107); Globulin 3.7 g/dL (2.4-3.5); Glucose 80 mg/dL (70-105); Potassium 3.7 mmol/L (3.5-5.1); Protein, Total 6.2 g/dL (6.0-8.3); Sodium 140 mmol/L (136-145)
[2021-07-15] MEDS ORDERED: Meropenem 1 GM in Sodium Chloride 0.9% 100 ML IVPB SCH (08:00)
[2021-07-15] MEDS: Gabapentin 300 MG CAP PO SCH ×3 (08:45→20:31)
[2021-07-15] MEDS: Enoxaparin Sodium 40 MG/0.4 ML SYRINGE SC SCH (08:47)
[2021-07-15] MEDS ORDERED: Furosemide 40 MG TAB PO SCH (10:15)
[2021-07-15] MEDS: Lidocaine 5% Patch TD SCH (11:11)
[2021-07-15 11:50] LABS: SARS-CoV-2 PCR by NAA Not Detected (NotDetected)
[2021-07-15] MEDS: Meropenem 1 GM in Sodium Chloride 0.9% 100 ML IVPB SCH (15:16)
[2021-07-15] MEDS ORDERED: Calcium Carbonate 500 MG ChewTAB PO SCH (19:34)
[2021-07-16] MEDS: Meropenem 1 GM in Sodium Chloride 0.9% 100 ML IVPB SCH ×4 (00:08→23:36)
[2021-07-16] MEDS ORDERED: Metoclopramide HCl 10 MG/2 ML VIAL IVP SCH (00:13)
[2021-07-16] MEDS: traMADol HCl 50 MG TAB PO PRN ×3 (00:42→20:17)
[2021-07-16] MEDS: Ciprofloxacin 500 MG TAB PO SCH ×2 (06:07→20:17)
[2021-07-16] MEDS: Furosemide 40 MG TAB PO SCH (06:07)
[2021-07-16] MEDS: HYDROcodone/Acetaminophen 7.5/325 mg Tablet PO PRN ×2 (06:12→10:41)
[2021-07-16 06:37] LABS: #Eosinphils 0.4 thou/uL (0.0-0.7); #Monocytes 0.9 thou/uL (0.11-0.59); #Neutrophils 11.4 thou/uL (1.40-6.50); %Basophils 0.2 % (0.0-1.0); %Eosinophils 2.8 % (0.0-10.0); %Lymphocytes 7.5 % (21.0-51.0); %Monocytes 6.8 % (0.0-10.0); %Neutrophils 82.6 % (42.0-75.0); Hemoglobin 7.7 g/dL (12.0-16.0); Mean Corpuscular HGB CONC 32.6 g/dL (32.0-36.0); Mean Corpuscular Hemoglobin 29.7 pg (27.0-31.0); Mean Corpuscular Volume 91.1 fL (78.0-98.0); Mean Platelet Volume 5.7 fL (7.4-10.4); Platelet Count 842 thou/uL (130-400); RBC Distribution Width 12.6 % (11.5-14.5); Red Blood Cell (RBC) Count 2.59 mill/uL (4.20-5.40); White Blood Cell (WBC) Count 13.8 thou/uL (4.8-10.8)
[2021-07-16 07:02] LABS: Anion Gap 13 mmol/L (10-20); BUN (Urea Nitrogen) 7 mg/dL (7.0-18.7); Calc. Creatinine Clearance 78 mL/min (70-130); Calcium 8.3 mg/dL (7.8-10.44); Carbon Dioxide 28 mmol/L (22-29); Chloride 102 mmol/L (98-107); Glucose 97 mg/dL (70-105); Potassium 3.2 mmol/L (3.5-5.1); Sodium 140 mmol/L (136-145)
[2021-07-16] MEDS: Gabapentin 300 MG CAP PO SCH ×3 (09:11→20:17)
[2021-07-16] MEDS: Enoxaparin Sodium 40 MG/0.4 ML SYRINGE SC SCH (10:29)
[2021-07-16] MEDS: Lidocaine 5% Patch TD SCH (12:45)
[2021-07-16] MEDS ORDERED: Morphine 4 MG/ML VIAL SLOW IVP SCH (13:15)
[2021-07-16] MEDS ORDERED: Potassium Chloride 20 MEQ TAB PO SCH (18:00)
[2021-07-16] MEDS: Transdermal Patch Removal TOP SCH (19:17)
[2021-07-16] MEDS: Ondansetron ODT 4 MG TAB PO PRN (20:17)
[2021-07-17] MEDS: Furosemide 40 MG TAB PO SCH (06:18)
[2021-07-17] MEDS: Ciprofloxacin 500 MG TAB PO SCH ×2 (06:18→20:17)
[2021-07-17 06:54] LABS: Anion Gap 10 mmol/L (10-20); BUN (Urea Nitrogen) 9 mg/dL (7.0-18.7); Calc. Creatinine Clearance 80 mL/min (70-130); Calcium 8.4 mg/dL (7.8-10.44); Carbon Dioxide 32 mmol/L (22-29); Chloride 100 mmol/L (98-107); Glucose 92 mg/dL (70-105); Potassium 3.4 mmol/L (3.5-5.1); Sodium 139 mmol/L (136-145)
[2021-07-17 07:04] LABS: #Eosinphils 0.4 thou/uL (0.0-0.7); #Lymphocytes 1.3 thou/uL (1.20-3.40); #Monocytes 0.8 thou/uL (0.11-0.59); #Neutrophils 10.2 thou/uL (1.40-6.50); %Basophils 0.3 % (0.0-1.0); %Eosinophils 2.9 % (0.0-10.0); %Lymphocytes 9.9 % (21.0-51.0); %Monocytes 6.4 % (0.0-10.0); %Neutrophils 80.5 % (42.0-75.0); Hemoglobin 7.6 g/dL (12.0-16.0); Mean Corpuscular HGB CONC 32.6 g/dL (32.0-36.0); Mean Corpuscular Hemoglobin 29.2 pg (27.0-31.0); Mean Corpuscular Volume 89.5 fL (78.0-98.0); Mean Platelet Volume 5.6 fL (7.4-10.4); Platelet Count 915 thou/uL (130-400); RBC Distribution Width 12.5 % (11.5-14.5); White Blood Cell (WBC) Count 12.6 thou/uL (4.8-10.8)
[2021-07-17] MEDS ORDERED: Potassium Chloride 20 MEQ TAB PO SCH (09:00)
[2021-07-17] MEDS: Enoxaparin Sodium 40 MG/0.4 ML SYRINGE SC SCH (09:28)
[2021-07-17] MEDS: Gabapentin 300 MG CAP PO SCH ×3 (09:28→20:20)
[2021-07-17] MEDS: Meropenem 1 GM in Sodium Chloride 0.9% 100 ML IVPB SCH ×3 (09:28→23:07)
[2021-07-17 09:38] VITALS: BMI 32.2
[2021-07-17] MEDS: Ondansetron ODT 4 MG TAB PO PRN ×2 (10:29→18:07)
[2021-07-17] MEDS: HYDROcodone/Acetaminophen 7.5/325 mg Tablet PO PRN ×3 (10:29→23:08)
[2021-07-17] MEDS ORDERED: Furosemide 20 MG TAB PO SCH (10:30)
[2021-07-17] MEDS ORDERED: Ferrous Sulfate 325 MG TAB PO SCH (10:30)
[2021-07-17] MEDS: Lidocaine 5% Patch TD SCH (11:59)
[2021-07-17] MEDS: Ferrous Sulfate 325 MG TAB PO SCH ×2 (16:22→20:17)
[2021-07-17] MEDS ORDERED: Mag-Al 1200 mg/1200 mg/30 ML UDCUP PO PRN (18:39)
[2021-07-18] MEDS: Transdermal Patch Removal TOP SCH (03:50)
[2021-07-18] MEDS: Ciprofloxacin 500 MG TAB PO SCH (05:22)
[2021-07-18] MEDS: HYDROcodone/Acetaminophen 7.5/325 mg Tablet PO PRN ×3 (05:22→15:23)
[2021-07-18 05:54] LABS: #Basophils 0.1 thou/uL (0.0-0.2); #Eosinphils 0.4 thou/uL (0.0-0.7); #Lymphocytes 1.5 thou/uL (1.20-3.40); #Monocytes 0.8 thou/uL (0.11-0.59); %Basophils 0.7 % (0.0-1.0); %Eosinophils 3.6 % (0.0-10.0); %Monocytes 7.3 % (0.0-10.0); %Neutrophils 74.4 % (42.0-75.0); Hemoglobin 7.8 g/dL (12.0-16.0); Mean Corpuscular Volume 90.4 fL (78.0-98.0); Mean Platelet Volume 5.3 fL (7.4-10.4); Platelet Count 1008 thou/uL (130-400); RBC Distribution Width 12.5 % (11.5-14.5); Red Blood Cell (RBC) Count 2.79 mill/uL (4.20-5.40); White Blood Cell (WBC) Count 10.7 thou/uL (4.8-10.8)
[2021-07-18 06:11] VITALS: TEMP 98.5
[2021-07-18 06:15] LABS: ALT (SGPT) 20 U/L (8-55); AST (SGOT) 27 U/L (5-34); Albumin 2.7 g/dL (3.5-5.0); Alkaline Phosphatase 88 U/L (40-110); Anion Gap 13 mmol/L (10-20); BUN (Urea Nitrogen) 12 mg/dL (7.0-18.7); Bilirubin, Total Less than 0.2 mg/dL (0.2-1.2); Calc. Creatinine Clearance 74 mL/min (70-130); Calcium 8.7 mg/dL (7.8-10.44); Carbon Dioxide 29 mmol/L (22-29); Chloride 99 mmol/L (98-107); Glucose 96 mg/dL (70-105); Potassium 3.7 mmol/L (3.5-5.1); Protein, Total 6.7 g/dL (6.0-8.3); Sodium 137 mmol/L (136-145)
[2021-07-18 07:52] VITALS: BP 108/63
[2021-07-18] MEDS: Meropenem 1 GM in Sodium Chloride 0.9% 100 ML IVPB SCH (08:09)
[2021-07-18] MEDS ORDERED: Multivit, Therapeutic 1 TAB PO SCH (09:00)
[2021-07-18] MEDS: Gabapentin 300 MG CAP PO SCH ×2 (11:25→15:12)
[2021-07-18] MEDS: Ferrous Sulfate 325 MG TAB PO SCH (11:25)
[2021-07-18] MEDS ORDERED: Aspirin 325 mg Enteric Coated Tablet PO SCH (13:15)
[2021-07-18] MEDS: Lidocaine 5% Patch TD SCH (15:57)
[2021-07-18] MEDS: Enoxaparin Sodium 40 MG/0.4 ML SYRINGE SC SCH (15:58)
[2021-07-19] MEDS ORDERED: Aspirin 325 mg Enteric Coated Tablet PO SCH (09:00)
== END 2021-07-18 15:57 | disposition home or self-care (01) | DRG 853 ==
LOC: ERS 10:17 → SDC/OP 14:12 → SJJU 20:28 → 2NO 07-08 02:47 → SURG B 07-10 20:08
PROVIDERS: ADMIT Specialist; ATTEND Internal Medicine
PROC: 0W9F00Z Drainage of Abdominal Wall with Drainage Device, Open Approach (ICD-10-PCS; principal; 2021-07-04)
PROC: 0DB80ZZ Excision of Small Intestine, Open Approach (ICD-10-PCS; 2021-07-04)
PROC: 0DBF0ZZ Excision of Right Large Intestine, Open Approach (ICD-10-PCS; 2021-07-04)
PROC: 02HV33Z Insertion of Infusion Device into Superior Vena Cava, Percutaneous Approach (ICD-10-PCS; 2021-07-09)
DX: A41.51 Sepsis due to Escherichia coli [E. coli] (principal); K63.1 Perforation of intestine (nontraumatic); K65.1 Peritoneal abscess; J18.9 Pneumonia, unspecified organism; N17.9 Acute kidney failure, unspecified; E87.1 Hypo-osmolality and hyponatremia; K50.90 Crohn's disease, unspecified, without complications; Z20.822 Contact with and (suspected) exposure to COVID-19; E66.9 Obesity, unspecified; D75.839 Thrombocytosis, unspecified; F17.210 Nicotine dependence, cigarettes, uncomplicated; D64.9 Anemia, unspecified; N18.2 Chronic kidney disease, stage 2 (mild); E87.6 Hypokalemia; I34.0 Nonrheumatic mitral (valve) insufficiency; E83.42 Hypomagnesemia; E83.39 Other disorders of phosphorus metabolism; E87.70 Fluid overload, unspecified; Z91.040 Latex allergy status; Z90.49 Acquired absence of other specified parts of digestive tract; Z88.5 Allergy status to narcotic agent; Z68.30 Body mass index [BMI] 30.0-30.9, adult
CPT/HCPCS: 36415; 71045; 71275; 74018; 74177; 80048; 80053; 80202; 80307; 81003; 81015; 82010; 83605; 83690; 83735; 84100; 84134; 84703; 85025; 85379; 87040; 87070; 87076; 87077; 87081; 87186; 87205; 88307; 93005; 93010; 96365; 96375; C1776; J1100; J1200; J1642; J1650; J1885; J1940; J2185; J2250; J2270; J2405; J2543; J2550; J2704; J2765; J2795; J2997; J3010; J3370; J3475; J3480; J3490; J7030; J7050; P9045; Q0162; Q9967; S0028; U0002; U0003; U0005

== ENCOUNTER 2021-07-28 20:22 | Inpatient (IN) | payer OTHER, SELFPAY ==
[2021-07-28] MEDS ORDERED: Morphine 4 MG/ML VIAL SLOW IVP PRN (21:03)
[2021-07-28] MEDS ORDERED: Ondansetron ODT 4 MG TAB SL PRN (21:15)
[2021-07-28] MEDS ORDERED: Ondansetron PF 4 MG/2 ML Vial IVP PRN (21:15)
[2021-07-28] MEDS ORDERED: Ketorolac Tromethamine 30 MG/ML VIAL IVP SCH (21:45)
[2021-07-28] MEDS ORDERED: Piperacillin/Tazobactam 3.375 GM in Sodium Chloride 0.9% 100 ML IVPB SCH (22:00)
[2021-07-28] MEDS: Piperacillin/Tazobactam 3.375 GM in Sodium Chloride 0.9% 100 ML IVPB SCH (22:19)
[2021-07-28] MEDS: Lactated Ringer's 1,000 ML IV SCH (22:19)
[2021-07-28 22:52] VITALS: BMI 26.8
[2021-07-28] MEDS: Ketorolac Tromethamine 30 MG/ML VIAL IVP SCH (22:55)
[2021-07-29] MEDS: Morphine 4 MG/ML VIAL SLOW IVP PRN ×8 (02:10→23:03)
[2021-07-29] MEDS: Ondansetron PF 4 MG/2 ML Vial IVP PRN ×3 (02:10→20:43)
[2021-07-29] MEDS: Ketorolac Tromethamine 30 MG/ML VIAL IVP SCH ×4 (05:44→23:01)
[2021-07-29] MEDS: Piperacillin/Tazobactam 3.375 GM in Sodium Chloride 0.9% 100 ML IVPB SCH ×3 (05:45→20:54)
[2021-07-29] MEDS ORDERED: traMADol HCl 50 MG TAB PO PRN (06:12)
[2021-07-29] MEDS ORDERED: Dextrose 50% Abboject 50 ML SYRINGE SLOW IVP PRN (06:12)
[2021-07-29] MEDS ORDERED: Dextrose 5% in Water 1,000 ML IV PRN (06:12)
[2021-07-29 06:47] LABS: #Eosinphils 0.4 thou/uL (0.0-0.7); #Lymphocytes 0.8 thou/uL (1.20-3.40); #Monocytes 0.8 thou/uL (0.11-0.59); #Neutrophils 8.4 thou/uL (1.40-6.50); %Basophils 0.3 % (0.0-1.0); %Eosinophils 4.2 % (0.0-10.0); %Lymphocytes 7.6 % (21.0-51.0); Hemoglobin 8.6 g/dL (12.0-16.0); Mean Corpuscular HGB CONC 33.1 g/dL (32.0-36.0); Mean Corpuscular Hemoglobin 28.6 pg (27.0-31.0); Mean Corpuscular Volume 86.4 fL (78.0-98.0); Mean Platelet Volume 5.4 fL (7.4-10.4); Platelet Count 603 thou/uL (130-400); Red Blood Cell (RBC) Count 2.99 mill/uL (4.20-5.40); White Blood Cell (WBC) Count 10.5 thou/uL (4.8-10.8)
[2021-07-29 07:04] LABS: Anion Gap 14 mmol/L (10-20); BUN (Urea Nitrogen) 11 mg/dL (7.0-18.7); Calc. Creatinine Clearance 87 mL/min (70-130); Calcium 8.9 mg/dL (7.8-10.44); Carbon Dioxide 23 mmol/L (22-29); Chloride 101 mmol/L (98-107); Glucose 95 mg/dL (70-105); Potassium 3.5 mmol/L (3.5-5.1); Sodium 134 mmol/L (136-145)
[2021-07-29] MEDS: Lactated Ringer's 1,000 ML IV SCH ×2 (08:11→18:03)
[2021-07-29] MEDS: Enoxaparin Sodium 40 MG/0.4 ML SYRINGE SC SCH (08:33)
[2021-07-29] MEDS: Famotidine 20 MG TAB PO SCH ×2 (08:33→20:42)
[2021-07-29] MEDS ORDERED: Polyethylene Glycol 3350 17 GM Packet PO SCH (12:00)
[2021-07-29] MEDS: Ferrous Sulfate 325 MG TAB PO SCH (16:15)
[2021-07-30] MEDS: Morphine 4 MG/ML VIAL SLOW IVP PRN ×5 (02:45→20:32)
[2021-07-30] MEDS: Ketorolac Tromethamine 30 MG/ML VIAL IVP SCH ×4 (05:00→23:38)
[2021-07-30] MEDS: Piperacillin/Tazobactam 3.375 GM in Sodium Chloride 0.9% 100 ML IVPB SCH ×3 (05:00→21:40)
[2021-07-30] MEDS: Lactated Ringer's 1,000 ML IV SCH ×2 (06:17→14:33)
[2021-07-30 06:22] LABS: #Eosinphils 0.5 thou/uL (0.0-0.7); #Monocytes 0.7 thou/uL (0.11-0.59); #Neutrophils 4.9 thou/uL (1.40-6.50); %Basophils 0.6 % (0.0-1.0); %Lymphocytes 13.9 % (21.0-51.0); %Monocytes 10.3 % (0.0-10.0); %Neutrophils 68.3 % (42.0-75.0); Hemoglobin 7.7 g/dL (12.0-16.0); Mean Corpuscular HGB CONC 33.6 g/dL (32.0-36.0); Mean Corpuscular Hemoglobin 28.7 pg (27.0-31.0); Mean Corpuscular Volume 85.5 fL (78.0-98.0); Mean Platelet Volume 5.7 fL (7.4-10.4); Platelet Count 539 thou/uL (130-400); RBC Distribution Width 12.9 % (11.5-14.5); Red Blood Cell (RBC) Count 2.69 mill/uL (4.20-5.40); White Blood Cell (WBC) Count 7.1 thou/uL (4.8-10.8)
[2021-07-30 06:38] LABS: Anion Gap 11 mmol/L (10-20); BUN (Urea Nitrogen) 8 mg/dL (7.0-18.7); Calc. Creatinine Clearance 101 mL/min (70-130); Calcium 8.6 mg/dL (7.8-10.44); Carbon Dioxide 24 mmol/L (22-29); Chloride 104 mmol/L (98-107); Glucose 84 mg/dL (70-105); Potassium 3.5 mmol/L (3.5-5.1); Sodium 135 mmol/L (136-145)
[2021-07-30] MEDS: Fluconazole 100 MG TAB PO SCH (08:28)
[2021-07-30] MEDS: Multivit, Therapeutic 1 TAB PO SCH (08:28)
[2021-07-30] MEDS: Enoxaparin Sodium 40 MG/0.4 ML SYRINGE SC SCH (08:28)
[2021-07-30] MEDS: Ferrous Sulfate 325 MG TAB PO SCH ×2 (08:28→17:42)
[2021-07-30] MEDS: Famotidine 20 MG TAB PO SCH ×2 (08:28→20:22)
[2021-07-30] MEDS: Polyethylene Glycol 3350 17 GM Packet PO SCH (08:30)
[2021-07-30] MEDS: Gabapentin 300 MG CAP PO SCH ×4 (14:32→20:25)
[2021-07-30] MEDS: Ondansetron PF 4 MG/2 ML Vial IVP PRN (20:41)
[2021-07-31] MEDS: Morphine 4 MG/ML VIAL SLOW IVP PRN ×4 (00:48→20:09)
[2021-07-31 05:16] LABS: #Basophils 0.1 thou/uL (0.0-0.2); #Eosinphils 0.4 thou/uL (0.0-0.7); #Lymphocytes 1.2 thou/uL (1.20-3.40); #Monocytes 0.9 thou/uL (0.11-0.59); #Neutrophils 8.6 thou/uL (1.40-6.50); %Basophils 0.5 % (0.0-1.0); %Eosinophils 3.9 % (0.0-10.0); %Lymphocytes 10.5 % (21.0-51.0); %Monocytes 8.3 % (0.0-10.0); %Neutrophils 76.8 % (42.0-75.0); Hemoglobin 8.1 g/dL (12.0-16.0); Mean Corpuscular HGB CONC 33.4 g/dL (32.0-36.0); Mean Corpuscular Hemoglobin 28.5 pg (27.0-31.0); Mean Corpuscular Volume 85.4 fL (78.0-98.0); Mean Platelet Volume 5.8 fL (7.4-10.4); Platelet Count 586 thou/uL (130-400); RBC Distribution Width 12.8 % (11.5-14.5); Red Blood Cell (RBC) Count 2.83 mill/uL (4.20-5.40); White Blood Cell (WBC) Count 11.2 thou/uL (4.8-10.8)
[2021-07-31] MEDS: Ketorolac Tromethamine 30 MG/ML VIAL IVP SCH ×4 (05:31→23:59)
[2021-07-31] MEDS: Piperacillin/Tazobactam 3.375 GM in Sodium Chloride 0.9% 100 ML IVPB SCH ×3 (05:31→21:43)
[2021-07-31 05:41] LABS: ALT (SGPT) 27 U/L (8-55); AST (SGOT) 16 U/L (5-34); Albumin 3.2 g/dL (3.5-5.0); Alkaline Phosphatase 172 U/L (40-110); Anion Gap 14 mmol/L (10-20); BUN (Urea Nitrogen) 9 mg/dL (7.0-18.7); Bilirubin, Total 0.2 mg/dL (0.2-1.2); Calc. Creatinine Clearance 100 mL/min (70-130); Calcium 8.6 mg/dL (7.8-10.44); Carbon Dioxide 25 mmol/L (22-29); Chloride 104 mmol/L (98-107); Globulin 3.5 g/dL (2.4-3.5); Glucose 84 mg/dL (70-105); Potassium 3.6 mmol/L (3.5-5.1); Protein, Total 6.7 g/dL (6.0-8.3); Sodium 139 mmol/L (136-145)
[2021-07-31] MEDS: Ferrous Sulfate 325 MG TAB PO SCH ×2 (09:17→17:59)
[2021-07-31] MEDS: Fluconazole 100 MG TAB PO SCH (09:17)
[2021-07-31] MEDS: Multivit, Therapeutic 1 TAB PO SCH (09:17)
[2021-07-31] MEDS: Gabapentin 300 MG CAP PO SCH ×3 (09:17→19:59)
[2021-07-31] MEDS: Famotidine 20 MG TAB PO SCH ×2 (09:17→19:59)
[2021-07-31] MEDS: Enoxaparin Sodium 40 MG/0.4 ML SYRINGE SC SCH (09:17)
[2021-07-31] MEDS: Lactated Ringer's 1,000 ML IV SCH (09:21)
[2021-07-31] MEDS: Polyethylene Glycol 3350 17 GM Packet PO SCH (09:21)
[2021-07-31] MEDS: Ondansetron PF 4 MG/2 ML Vial IVP PRN (20:17)
[2021-08-01] MEDS: Lactated Ringer's 1,000 ML IV SCH
[2021-08-01] MEDS: Piperacillin/Tazobactam 3.375 GM in Sodium Chloride 0.9% 100 ML IVPB SCH ×2 (05:09→13:55)
[2021-08-01] MEDS: Ketorolac Tromethamine 30 MG/ML VIAL IVP SCH ×3 (05:09→18:24)
[2021-08-01 08:48] LABS: #Eosinphils 0.5 thou/uL (0.0-0.7); #Lymphocytes 1.4 thou/uL (1.20-3.40); #Monocytes 0.6 thou/uL (0.11-0.59); #Neutrophils 7.8 thou/uL (1.40-6.50); %Basophils 0.5 % (0.0-1.0); %Eosinophils 4.8 % (0.0-10.0); %Lymphocytes 13.7 % (21.0-51.0); %Monocytes 6.2 % (0.0-10.0); %Neutrophils 74.9 % (42.0-75.0); Hemoglobin 8.6 g/dL (12.0-16.0); Mean Corpuscular HGB CONC 32.4 g/dL (32.0-36.0); Mean Corpuscular Hemoglobin 28.8 pg (27.0-31.0); Mean Corpuscular Volume 88.8 fL (78.0-98.0); Platelet Count 627 thou/uL (130-400); RBC Distribution Width 12.9 % (11.5-14.5); Red Blood Cell (RBC) Count 2.98 mill/uL (4.20-5.40); White Blood Cell (WBC) Count 10.3 thou/uL (4.8-10.8)
[2021-08-01] MEDS: Enoxaparin Sodium 40 MG/0.4 ML SYRINGE SC SCH (08:51)
[2021-08-01] MEDS: Famotidine 20 MG TAB PO SCH (08:51)
[2021-08-01] MEDS: Gabapentin 300 MG CAP PO SCH (08:51)
[2021-08-01] MEDS: Ferrous Sulfate 325 MG TAB PO SCH ×2 (08:51→18:24)
[2021-08-01] MEDS: Multivit, Therapeutic 1 TAB PO SCH (08:52)
[2021-08-01] MEDS: Fluconazole 100 MG TAB PO SCH (08:52)
[2021-08-01] MEDS ORDERED: Heparin 1,000 UNITS/ML VIAL ONE (08:56)
[2021-08-01 09:25] LABS: HBCM Index 0.07 S/CO (0-0.79); HBSAg Index 0.23 S/CO (0-0.99); Hep A IgM AB Non-Reactive (NonReactive); Hep A IgM S/CO 0.12 S/CO (0-0.79); Hep B Surf Ag Non-Reactive S/CO (NonReactive); Hep C IgG Ab Non-Reactive (NonReactive); Hep C Index 0.26 S/CO (0-0.79); Hepatitis B Core IgM Abs Non-Reactive (NonReactive)
[2021-08-01] MEDS ORDERED: Iopamidol 370 76% 100 ML VIAL ONE (10:23)
[2021-08-01] MEDS: Morphine 4 MG/ML VIAL SLOW IVP PRN (16:17)
[2021-08-01] MEDS: Ondansetron PF 4 MG/2 ML Vial IVP PRN (16:18)
[2021-08-01 20:03] VITALS: BP 114/68; TEMP 98.1
== END 2021-08-01 19:52 | disposition home or self-care (01) | DRG 74 ==
LOC: SURG A 20:33 → OBSVTOIN 07-29 02:45
PROVIDERS: ADMIT Specialist; ATTEND Specialist
PROC: 02HV33Z Insertion of Infusion Device into Superior Vena Cava, Percutaneous Approach (ICD-10-PCS; principal; 2021-08-01)
PROC: B548ZZA Ultrasonography of Superior Vena Cava, Guidance (ICD-10-PCS; 2021-08-01)
DX: M79.2 Neuralgia and neuritis, unspecified (principal); K50.918 Crohn's disease, unspecified, with other complication; L02.211 Cutaneous abscess of abdominal wall; Z20.822 Contact with and (suspected) exposure to COVID-19; Y83.8 Other surgical procedures as the cause of abnormal reaction of the patient, or of later complication, without mention of misadventure at the time of the procedure; Z90.49 Acquired absence of other specified parts of digestive tract; Z88.5 Allergy status to narcotic agent; Z91.040 Latex allergy status
CPT/HCPCS: 36415; 36569; 74177; 80048; 80053; 80074; 85025; C1751; J1644; J1650; J1885; J2270; J2405; J2543; J3490; J7120; Q9967

== ENCOUNTER 2023-02-12 18:39 | Emergency (ER) | payer OTHER ==
[~2023-02-12 18:39] MED LIST: Iopamidol-370 76% 500 ML MDV (1 ML CHARGE) ONE
[2023-02-12 20:28] LABS: Bacteria/HPF None Seen HPF (None Seen); Bilirubin Negative (Negative); Blood, Urine 1+ (Negative); CAUTI Indications for Culture Fever or rigors; Clarity Clear (Clear); Glucose, Urine (Dipstick) Normal (Negative); Ketone, Urine Negative (Negative); Leukocyte Negative Leu/uL (Negative); Nitrite Negative (Negative); Protein, Urine (Dipstick) Negative (Neg-Trace); RBC/HPF 0-3 HPF (0-3); Specific Gravity, Urine 1.024 (1.002-1.036); Squamous Epithelial 0-3 HPF (0-3); Urobilinogen Normal mg/dL (Less than 2); WBC/HPF 0-3 HPF (0-3); pH, Urine 5.5 (5.0-9.0)
[2023-02-12 20:33] LABS: Urine Culture Reflex No No
[2023-02-12] MEDS ORDERED: Promethazine HCl 12.5 MG in Sodium Chloride 0.9% 50 ML IVPB SCH (21:15)
[2023-02-12] MEDS ORDERED: Morphine 4 MG/ML VIAL ONE ×3 (21:20→23:50)
[2023-02-12] MEDS ORDERED: Ketorolac Tromethamine 30 MG/ML VIAL ONE ×2 (21:20→21:46)
[2023-02-12] MEDS ORDERED: Promethazine HCl 25 MG/ML VIAL ONE (21:48)
[2023-02-12 22:07] LABS: #Basophils 0.1 thou/uL (0.0-0.2); %Basophils 0.8 % (0.0-1.0); %Eosinophils 0.3 % (0.0-10.0); %Monocytes 12.6 % (0.0-10.0); Hematocrit 38.8 % (36.0-47.0); Hemoglobin 13.7 g/dL (12.0-16.0); Mean Corpuscular HGB CONC 35.3 g/dL (32.0-36.0); Mean Corpuscular Hemoglobin 30.6 pg (27.0-31.0); Mean Corpuscular Volume 86.6 fl (78.0-98.0); Mean Platelet Volume 10.2 fL (7.4-10.4); Platelet Count 214 10x3/uL (130-400); RBC Distribution Width 12.6 % (11.5-14.5); Red Blood Cell (RBC) Count 4.48 mill/uL (4.20-5.40); White Blood Cell (WBC) Count 7.6 10x3/uL (4.8-10.8)
[2023-02-12 22:13] LABS: BHCG - Serum Negative (NEGATIVE); Pregs Control Background? CLEAR/WHITE (CLR/WHITE); Pregs Control Bar Appear? YES (CONTROL BAR)
[2023-02-12] MEDS ORDERED: Ondansetron PF 4 MG/2 ML Vial ONE (22:27)
[2023-02-12 22:31] LABS: ALT (SGPT) 16 U/L (8-55); AST (SGOT) 17 U/L (5-34); Albumin 4.1 g/dL (3.5-5.0); Alkaline Phosphatase 64 U/L (40-110); Anion Gap 13 mmol/L (10-20); BUN (Urea Nitrogen) 7 mg/dL (7.0-18.7); Bilirubin, Total 0.5 mg/dL (0.2-1.2); Calc. Creatinine Clearance 0 mL/min (70-130); Calcium 9.2 mg/dL (7.8-10.44); Carbon Dioxide 21 mmol/L (22-29); Chloride 103 mmol/L (98-107); Estimated GFR 101; Globulin 3.1 g/dL (2.4-3.5); Glucose 80 mg/dL (70-105); Potassium 3.2 mmol/L (3.5-5.1); Protein, Total 7.2 g/dL (6.0-8.3); Sodium 134 mmol/L (136-145)
== END 2023-02-13 01:01 | disposition home or self-care (01) ==
LOC: EEVIPCON 18:39 → ERS 18:39
DX: R10.84 Generalized abdominal pain (principal); F17.210 Nicotine dependence, cigarettes, uncomplicated
CPT/HCPCS: 74177; 80053; 81001; 83605; 84703; 85025; 96374; 96375; 96376; J1885; J2270; J2405; J2550; Q9967

== ENCOUNTER 2023-04-15 10:07 | Outpatient (CLI) | payer OTHER | END 2023-04-15 10:08 | disposition home or self-care (01) | LOC: BICRAD 10:07 | PROVIDERS: ATTEND Internal Medicine | DX: Z02.71 Encounter for disability determination (principal); M51.36 Other intervertebral disc degeneration, lumbar region; M47.816 Spondylosis without myelopathy or radiculopathy, lumbar region | CPT/HCPCS: 72100 ==